=== PATIENT | male | born 1985 | race Caucasian/White ===

== ENCOUNTER 2016-09-12 10:43 | Emergency (ER) | payer MEDICARE ==
[~2016-09-12] VITALS: Ht 182.9 cm; Wt 122.5 kg
[~2016-09-12 10:43] MED LIST: Allopurinol; Hydrocodone; Metoprolol Tartrate; OXYC-12 PO
--- NOTE | 2016-09-12 10:52 | ED General ---
General Stated Complaint: SYNCOPE Source of Information: Patient, EMS Exam Limitations: No Limitations History of Present Illness Initial Comments To ER per EMS from [facility] with reports of seizure-like activity. Patient had about 30 minutes left of his dialysis session today when this happened. He is supposed to get hemodialysis Wednesday and Wednesday. However, he states that he started "feeling sick" when he had dialysis so he quit going to dialysis a few months ago. He decided today that he should have dialysis again. He states that he does have a seizure history but does not take any medication for this. At this time his only complaint is of dizziness and "I feel weird" Timing/Duration: 1/2 Hour Severity: Moderate Allergies and Home Medications Allergies Coded Allergies: No Known Drug Allergies (Unverified , 12/03/14) Home Medications Oxycodone Hcl/Acetaminophen 1 Each Tablet, 1 EACH PO Q4-6H PRN PRN for PAIN, # 20 Ref 0 Prescribed by: JAYME GAGNON on 12/03/14 2025 [Allopurinol] , (Reported) [Hydrocodone] , (Reported) [Metoprolol Tartrate] , (Reported) Constitutional: see HPI EENTM: see HPI Respiratory: no symptoms reported Cardiovascular: no symptoms reported Genitourinary: no symptoms reported Musculoskeletal: no symptoms reported Skin: no symptoms reported Psychiatric/Neurological: No Symptoms Reported Hematologic/Lymphatic: No Symptoms Reported Immunological/Allergic: no symptoms reported Past Xlsnfvl-Yoknna-Umljlh Hx Seasonal Allergies Seasonal Allergies: No Surgeries HX Surgeries: Yes (Jaw reconstruction, urological procedure as a child, dialysis shunt) Respiratory Hx Respiratory Disorders: No Cardiovascular Hx Cardiac Disorders: Yes Cardiac Disorders: Hypertension Neurological Hx Neurological Disorders: No Reproductive System Hx Reproductive Disorders: No Genitourinary Hx Genitourinary Disorders: Yes (ESRD) Genitourinary Disorders: Renal Failure Gastrointestinal Hx Gastrointestinal Disorders: No Musculoskeletal Hx Musculoskeletal Disorders: Yes (Radiculopathy, MRI recently at [place]) Musculoskeletal Disorders: Chronic Back Pain Endocrine Hx Endocrine Disorders: No HEENT HX ENT Disorders: No Cancer Hx Cancer: No Psychosocial Hx Psychiatric Problems: No Integumentary HX Skin/Integumentary Disorder: No Blood Transfusions Hx Blood Disorders: No Physical Exam Vital Signs Vital Sign - Last 12Hours 09/12/16 11:00 Temp 98.4 Pulse 104 Resp 20 B/P (MAP) 140/94 Pulse Ox 94 O2 Delivery Room Air Capillary Refill : General Appearance: No Apparent Distress, WD/WN, Obese Eyes: Bilateral Eye EOMI, Bilateral Eye Normal Inspection, Bilateral Eye PERRL HEENT: PERRL/EOMI, TMs Normal Neck: Full Range of Motion, Normal Inspection Respiratory: Normal Breath Sounds, No Accessory Muscle Use, No Respiratory Distress Cardiovascular: Regular Rate, Rhythm, Normal Peripheral Pulses Gastrointestinal: Normal Bowel Sounds, Non Tender, Soft Extremity: Normal Capillary Refill, Normal Inspection, Other (dialysis fistula with no active bleeding to the left upper arm) Neurologic/Psychiatric: Alert, Oriented x3 Skin: Normal Color, Warm/Dry Progress/Results/Core Measures Results/Orders Lab Results Laboratory Tests Test 09/12/16 11:00 09/12/16 11:05 Range/Units Prothrombin Time 15.6 H 12.2-14.7 SEC INR Comment 1.3 0.8-1.4 White Blood Count 6.5 4.3-11.0 10^3/uL Red Blood Count 3.98 L 4.35-5.85 10^6/uL Hemoglobin 12.0 L 13.3-17.7 G/DL Hematocrit 35 L 40-54 % Mean Corpuscular Volume 87 80-99 FL Mean Corpuscular Hemoglobin 30 25-34 PG Mean Corpuscular Hemoglobin Concent 35 32-36 G/DL Red Cell Distribution Width 13.8 10.0-14.5 % Platelet Count 187 130-400 10^3/uL Mean Platelet Volume 10.5 H 7.4-10.4 FL Neutrophils (%) (Auto) 71 42-75 % Lymphocytes (%) (Auto) 18 12-44 % Monocytes (%) (Auto) 8 0-12 % Eosinophils (%) (Auto) 3 0-10 % Basophils (%) (Auto) 1 0-10 % Neutrophils # (Auto) 4.6 1.8-7.8 X 10^3 Lymphocytes # (Auto) 1.2 1.0-4.0 X 10^3 Monocytes # (Auto) 0.5 0.0-1.0 X 10^3 Eosinophils # (Auto) 0.2 0.0-0.3 10^3/uL Basophils # (Auto) 0.0 0.0-0.1 10^3/uL Sodium Level 138 135-145 MMOL/L Potassium Level 3.1 L 3.6-5.0 MMOL/L Chloride Level 96 L 98-107 MMOL/L Carbon Dioxide Level 26 21-32 MMOL/L Anion Gap 16 H 5-14 MMOL/L Blood Urea Nitrogen 27 H 7-18 MG/DL Creatinine 4.43 H 0.60-1.30 MG/DL Estimat Glomerular Filtration Rate 16 BUN/Creatinine Ratio 6 Glucose Level 96 70-105 MG/DL Calcium Level 7.8 L 8.5-10.1 MG/DL Total Bilirubin 0.4 0.1-1.0 MG/DL Aspartate Amino Transf (AST/SGOT) 24 5-34 U/L Alanine Aminotransferase (ALT/SGPT) 22 0-55 U/L Alkaline Phosphatase 80 40-136 U/L Total Protein 6.8 6.4-8.2 G/DL Albumin 4.1 3.2-4.5 G/DL My Orders Orders - JAYME GAGNON APRN Cbc With Automated Diff (09/12/16 10:49) Comprehensive Metabolic Panel (09/12/16 10:49) Ekg Tracing (09/12/16 10:49) Chest 1 View, Ap/Pa Only (09/12/16 10:49) Ua Culture If Indicated (09/12/16 10:49) Drug Screen Stat (Urine) (09/12/16 10:49) Protime With Inr (09/12/16 11:25) Vital Signs/I&O Vital Sign - Last 12Hours 09/12/16 11:00 Temp 98.4 Pulse 104 Resp 20 B/P (MAP) 140/94 Pulse Ox 94 O2 Delivery Room Air Departure Communication Progress Notes 1124-labs sent with the patient from [facility] show June 15, 2016 his creatinine was 6.9. This is the most recent creatinine on file. His BUN at that time was 66. 1149- patient is asymptomatic at this time. States that he will need a cab to get back to his truck which is at the [facility] dialysis center. Vitals stable. Patient states "I told them I was gonna go down, I think they took too much fluid off" Impression Impression: Primary Impression: Chronic renal failure Additional Impressions: Syncope due to orthostatic hypotension noncompliance with dialysis regimen Disposition: 01 HOME, SELF-CARE Condition: Stable Departure-Patient Inst. Decision time for Depature: 11:44 Referrals: NO,LOCAL PHYSICIAN (PCP/Family) Primary Care Physician Patient Instructions: Orthostatic Hypotension (DC) Add. Discharge Instructions: 1. Follow-up with your regular doctor 2. Do not skip your next dialysis appointment on Wednesday 3. Return to ER for any concerns JAYME GAGNON APRN Sep 12, 2016 10:52
[2016-09-12 11:12] LABS: BASOPHILS % (AUTO) 1 % (0-10); EOSINOPHILS # (AUTO) 0.2 10^3/uL (0.0-0.3); EOSINOPHILS % (AUTO) 3 % (0-10); LYMPHOCYTES # (AUTO) 1.2 X 10^3 (1.0-4.0); LYMPHOCYTES % (AUTO) 18 % (12-44); MEAN CORPUSCULAR HEMOGLOBIN 30 PG (25-34); MEAN CORPUSCULAR HGB CONC 35 G/DL (32-36); MEAN CORPUSCULAR VOLUME 87 FL (80-99); MEAN PLATELET VOLUME 10.5 FL (7.4-10.4); MONOCYTES # (AUTO) 0.5 X 10^3 (0.0-1.0); MONOCYTES % (AUTO) 8 % (0-12); NEUTROPHILS # (AUTO) 4.6 X 10^3 (1.8-7.8); NEUTROPHILS % (AUTO) 71 % (42-75); PLATELET COUNT 187 10^3/uL (130-400); RED BLOOD COUNT 3.98 10^6/uL (4.35-5.85); RED CELL DISTRIBUTION WIDTH 13.8 % (10.0-14.5); WHITE BLOOD COUNT 6.5 10^3/uL (4.3-11.0)
[2016-09-12 11:34] LABS: ALBUMIN 4.1 G/DL (3.2-4.5); BILIRUBIN,TOTAL 0.4 MG/DL (0.1-1.0); CALCIUM 7.8 MG/DL (8.5-10.1); CREATININE SERUM 4.43 MG/DL (0.60-1.30); POTASSIUM 3.1 MMOL/L (3.6-5.0); TOTAL PROTEIN 6.8 G/DL (6.4-8.2)
[2016-09-12 11:34] LABS: INR 1.3 (0.8-1.4); PROTHROMBIN TIME PATIENT 15.6 SEC (12.2-14.7)
--- NOTE | 2016-09-12 11:42 | Diagnostic Imaging Report ---
EXAM: CHEST 1 VIEW, AP/PA ONLY INDICATION: Syncope. COMPARISON: None. FINDINGS: Normal heart size and pulmonary vascularity. Small right pleural effusion. No focal consolidation. No pneumothorax. No acute osseous findings. IMPRESSION: Small right pleural effusion. Chest is otherwise negative. Dictated by: Dictated on workstation # [id number]
[2016-09-12 11:49] VITALS: BP 143/90
== END 2016-09-12 11:49 | disposition home or self-care (01) ==
LOC: EDUNIT# 10:43 → ER 10:44
DX: I95.1 Orthostatic hypotension (principal); R55 Syncope and collapse; I12.0 Hypertensive chronic kidney disease with stage 5 chronic kidney disease or end stage renal disease; N18.6 End stage renal disease; G40.909 Epilepsy, unspecified, not intractable, without status epilepticus; J90 Pleural effusion, not elsewhere classified; Z91.15 Patient's noncompliance with renal dialysis
CPT/HCPCS: 36415; 71010; 80053; 85025; 85610; 93005

== ENCOUNTER 2018-09-15 22:38 | Emergency (ER) | payer MEDICARE ==
[~2018-09-15] VITALS: Ht 185.4 cm; Wt 117.3 kg
[2018-09-15] MEDS ORDERED: fentaNYL INJECTION 100 MCG/2 ML AMP IVP ONE (23:00)
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
[2018-09-15 23:07] LABS: HEMATOCRIT 35 % (40-54); MEAN CORPUSCULAR HEMOGLOBIN 29 PG (25-34); MEAN CORPUSCULAR HGB CONC 31 G/DL (32-36); MEAN CORPUSCULAR VOLUME 92 FL (80-99); WHITE BLOOD COUNT 10.5 10^3/uL (4.3-11.0)
[2018-09-15 23:08] LABS: BASOPHILS # (AUTO) 0.1 10^3/uL (0.0-0.1); BASOPHILS % (AUTO) 1 % (0-10); EOSINOPHILS # (AUTO) 0.5 10^3/uL (0.0-0.3); EOSINOPHILS % (AUTO) 5 % (0-10); LYMPHOCYTES # (AUTO) 2.4 X 10^3 (1.0-4.0); LYMPHOCYTES % (AUTO) 23 % (12-44); MEAN PLATELET VOLUME 10.2 FL (7.4-10.4); MONOCYTES # (AUTO) 0.7 X 10^3 (0.0-1.0); MONOCYTES % (AUTO) 6 % (0-12); NEUTROPHILS # (AUTO) 6.7 X 10^3 (1.8-7.8); NEUTROPHILS % (AUTO) 64 % (42-75); PLATELET COUNT 248 10^3/uL (130-400); RED CELL DISTRIBUTION WIDTH 14.2 % (10.0-14.5)
[2018-09-15 23:15] LABS: PROTHROMBIN TIME PATIENT 13.8 SEC (12.2-14.7)
[2018-09-15 23:26] LABS: CHLORIDE 98 MMOL/L (98-107); SODIUM 142 MMOL/L (135-145)
[2018-09-15 23:27] LABS: ALANINE AMINOTRANSFERASE 34 U/L (0-55); ALBUMIN 4.7 GM/DL (3.2-4.5); ALKALINE PHOSPHATASE 110 U/L (40-136); BILIRUBIN,TOTAL 0.3 MG/DL (0.1-1.0); BUN/CREATININE RATIO 7; CALCIUM 6.8 MG/DL (8.5-10.1); CREATININE SERUM 12.58 MG/DL (0.60-1.30); GFR ESTIMATED 5; GLUCOSE 125 MG/DL (70-105); TOTAL PROTEIN 8.2 GM/DL (6.4-8.2)
[2018-09-15 23:52] LABS: CARBON DIOXIDE 11 MMOL/L (21-32)
--- NOTE | 2018-09-16 00:22 | NUR ---
FAMILY REPORTED THE PATIENT IS COUGHING UP BLOOD WHEN HE COUGHS. PT. DOES HAVE BLOOD IN THE NARES.
[2018-09-16] MEDS ORDERED: fentaNYL INJECTION 100 MCG/2 ML AMP IVP ONE (01:30)
[2018-09-16] MEDS ORDERED: ACETAMINOPHEN 500 MG TAB (TYLENOL) PO ONE (01:30)
[2018-09-16] MEDS ORDERED: ACETAMINOPHEN 500 MG TAB (TYLENOL) PO STA (01:48)
[2018-09-16] MEDS ORDERED: fentaNYL INJECTION 100 MCG/2 ML AMP IVP STA (01:48)
[2018-09-16 02:01] VITALS: BP 118/72
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
== END 2018-09-16 02:03 | disposition left against medical advice (07) ==
LOC: EDUNIT# 22:38 → EDBD 22:38 → ER FS 22:39
DX: S39.012A Strain of muscle, fascia and tendon of lower back, initial encounter (principal); S20.219A Contusion of unspecified front wall of thorax, initial encounter; G40.909 Epilepsy, unspecified, not intractable, without status epilepticus; R04.0 Epistaxis; I12.0 Hypertensive chronic kidney disease with stage 5 chronic kidney disease or end stage renal disease; N18.6 End stage renal disease; Z99.2 Dependence on renal dialysis; V89.2XXA Person injured in unspecified motor-vehicle accident, traffic, initial encounter
CPT/HCPCS: 36415; 70450; 71250; 72125; 74176; 80053; 80320; 82962; 83735; 85025; 85610; 85730; 93041

== ENCOUNTER 2019-01-25 20:53 | Emergency (ER) | payer MEDICARE ==
[~2019-01-25] VITALS: Ht 188 cm; Wt 117.7 kg
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
[2019-01-25 21:17] LABS: HEMATOCRIT 32 % (40-54); HEMOGLOBIN 10.4 G/DL (13.3-17.7); MEAN CORPUSCULAR HEMOGLOBIN 29 PG (25-34); MEAN CORPUSCULAR HGB CONC 32 G/DL (32-36); MEAN CORPUSCULAR VOLUME 89 FL (80-99); MEAN PLATELET VOLUME 10.7 FL (7.4-10.4); PLATELET COUNT 184 10^3/uL (130-400); RED CELL DISTRIBUTION WIDTH 14.7 % (10.0-14.5); WHITE BLOOD COUNT 12.4 10^3/uL (4.3-11.0)
[2019-01-25 21:18] LABS: BASOPHILS % (AUTO) 0 % (0-10); EOSINOPHILS # (AUTO) 0.3 10^3/uL (0.0-0.3); EOSINOPHILS % (AUTO) 2 % (0-10); LYMPHOCYTES # (AUTO) 0.8 X 10^3 (1.0-4.0); LYMPHOCYTES % (AUTO) 6 % (12-44); MONOCYTES # (AUTO) 0.7 X 10^3 (0.0-1.0); MONOCYTES % (AUTO) 6 % (0-12); NEUTROPHILS # (AUTO) 10.6 X 10^3 (1.8-7.8); NEUTROPHILS % (AUTO) 86 % (42-75)
--- NOTE | 2019-01-25 21:35 | Diagnostic Imaging Report ---
INDICATION: Chest pain. COMPARISON: 09/12/2016. FINDINGS: No pleural effusion or pneumothorax. Patchy basilar subsegmental atelectasis. There is a subacute/healing fracture about the lateral aspect of the left ninth rib. Heart is normal in size. IMPRESSION: 1. Subacute/healing fracture of the lateral left ninth rib. 2. Patchy basilar subsegmental atelectasis. 3. No pneumothorax. Dictated by: Dictated on workstation # [id number]
[2019-01-25 21:39] LABS: POTASSIUM 3.5 MMOL/L (3.6-5.0)
[2019-01-25 21:40] LABS: BILIRUBIN,TOTAL 0.3 MG/DL (0.1-1.0); CALCIUM 6.5 MG/DL (8.5-10.1); CREATININE SERUM 17.44 MG/DL (0.60-1.30); MAGNESIUM 2.3 MG/DL (1.6-2.4)
[2019-01-25 21:41] LABS: ALBUMIN 4.3 GM/DL (3.2-4.5); TOTAL PROTEIN 7.5 GM/DL (6.4-8.2)
[2019-01-25 21:51] LABS: ATYPICAL LYMPHOCYTES 2 %; BAND NEUTROPHILS 5 %; BASOPHILS % (MANUAL) 0 %; EOSINOPHILS % (MANUAL) 1 %; LYMPHOCYTES % (MANUAL) 10 %; MONOCYTES % (MANUAL) 1 %; NEUTROPHILS % (MANUAL) 81 %
[2019-01-25] MEDS: methylPREDNISolone 125 MG (Solu-MEDROL) VIAL IVP STA (22:12)
[2019-01-25] MEDS: ORPHENADRINE 60 MG/2 ML (NORFLEX) AMP IVP STA (22:12)
[2019-01-25 22:16] VITALS: BP 162/88
== END 2019-01-25 22:16 | disposition home or self-care (01) ==
LOC: EDUNIT# 20:53 → ER FS 20:54
DX: R07.81 Pleurodynia (principal); I12.0 Hypertensive chronic kidney disease with stage 5 chronic kidney disease or end stage renal disease; N18.6 End stage renal disease; G40.909 Epilepsy, unspecified, not intractable, without status epilepticus; Z99.2 Dependence on renal dialysis
CPT/HCPCS: 36415; 71046; 80053; 83735; 84484; 85007; 85027; 93005; 93041

== ENCOUNTER 2019-04-09 10:59 | Emergency (ER) | payer MEDICARE ==
[~2019-04-09] VITALS: Ht 185.4 cm; Wt 113.8 kg
--- NOTE | 2019-04-09 11:01 | ED Dyspnea ---
General Stated Complaint: SOB History of Present Illness Date Seen by Provider: Apr 09, 2019 Time Seen by Provider: 12:26 Initial Comments The patient is a 33-year-old white male with known hypertension going back to high school. He is also more recently been known to have renal failure. One of our nurses previously worked in an outpatient dialysis facility and he was receiving dialysis in 2014. He has decided that that was not helping him any and had discontinued both dialysis and blood pressure medicines. Today he pres ents with complaints of weakness and shortness of breath. It is noted that his parents and several other family members had of kidney failure. 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 Timing/Duration: Increasing Allergies and Home Medications Allergies Coded Allergies: No Known Drug Allergies (Unverified , 12/03/14) Home Medications Oxycodone Hcl/Acetaminophen 1 Each Tablet, 1 EACH PO Q4-6H PRN PRN for PAIN Prescribed by: JAYME GAGNON on 12/03/14 1257 Patient Home Medication List Home Medication List Reviewed: Yes Review of Systems Review of Systems Constitutional: see HPI EENTM: no symptoms reported Respiratory: short of breath Cardiovascular: no symptoms reported Gastrointestinal: no symptoms reported Genitourinary: no symptoms reported Musculoskeletal: muscle weakness Skin: no symptoms reported Psychiatric/Neurological: No Symptoms Reported Endocrine: No Symptoms Reported Hematologic/Lymphatic: No Symptoms Reported Past Ayqkwth-Wvqxpx-Gfbzhg Hx Patient Social History Recent Hopitalizations: No Seasonal Allergies Seasonal Allergies: No Past Medical History Surgeries: Yes (Jaw reconstruction, urological procedure as a child, dialysis shunt) Dialysis Respiratory: No Cardiac: Yes Hypertension Neurological: Yes Seizure Disorder Reproductive Disorders: No Genitourinary: Yes Renal Failure, Dialysis Gastrointestinal: No Musculoskeletal: Yes Chronic Back Pain Endocrine: No HEENT: No Cancer: No Psychosocial: No Integumentary: No Blood Disorders: No Physical Exam Vital Signs Vital Signs - First Documented 04/09/19 11:04 Temp 36.3 Pulse 104 Resp 20 B/P (MAP) 116/78 (91) Pulse Ox 99 O2 Delivery Room Air Capillary Refill : Height, Weight, BMI Height: 6'2.00" Weight: 259lbs. 9.0oz. 117.033564oq; BMI Method:Actual General Appearance: Mild Distress HEENT: Normal ENT Inspection Neck: Full Range of Motion, Normal Inspection Respiratory: Chest Non Tender, Lungs Clear, Normal Breath Sounds, No Accessory Muscle Use, No Respiratory Distress Cardiovascular: Regular Rate, Rhythm, No Edema, No Gallop, No JVD, No Murmur, Normal Peripheral Pulses Gastrointestinal: Normal Bowel Sounds, Other (abdomen is protuberant but there is no hong fluid wave) Extremity: Normal Capillary Refill, Normal Inspection Neurologic/Psychiatric: Alert, Oriented x3, No Motor/Sensory Deficits Skin: Normal Color, Warm/Dry Lymphatic: No Adenopathy Progress/Results/Core Measures Results/Orders Lab Results Laboratory Tests Test 04/09/19 11:25 04/09/19 11:30 04/09/19 12:11 Range/Units Pro-B-Type Natriuretic Peptide 8994.0 H <75.0 PG/ML White Blood Count 8.0 4.3-11.0 10^3/uL Red Blood Count 3.57 L 4.35-5.85 10^6/uL Hemoglobin 10.0 L 13.3-17.7 G/DL Hematocrit 31 L 40-54 % Mean Corpuscular Volume 87 80-99 FL Mean Corpuscular Hemoglobin 28 25-34 PG Mean Corpuscular Hemoglobin Concent 32 32-36 G/DL Red Cell Distribution Width 15.1 H 10.0-14.5 % Platelet Count 221 130-400 10^3/uL Mean Platelet Volume 10.7 H 7.4-10.4 FL Neutrophils (%) (Auto) 74 42-75 % Lymphocytes (%) (Auto) 12 12-44 % Monocytes (%) (Auto) 10 0-12 % Eosinophils (%) (Auto) 3 0-10 % Basophils (%) (Auto) 0 0-10 % Neutrophils # (Auto) 6.0 1.8-7.8 X 10^3 Lymphocytes # (Auto) 1.0 1.0-4.0 X 10^3 Monocytes # (Auto) 0.8 0.0-1.0 X 10^3 Eosinophils # (Auto) 0.3 0.0-0.3 10^3/uL Basophils # (Auto) 0.0 0.0-0.1 10^3/uL Sodium Level 134 L 135-145 MMOL/L Potassium Level 4.3 3.6-5.0 MMOL/L Chloride Level 88 L 98-107 MMOL/L Carbon Dioxide Level 13 L 21-32 MMOL/L Anion Gap 33 H 5-14 MMOL/L Blood Urea Nitrogen 163 *H 7-18 MG/DL Creatinine 19.60 H 0.60-1.30 MG/DL Estimat Glomerular Filtration Rate 3 BUN/Creatinine Ratio 8 Glucose Level 150 H 70-105 MG/DL Calcium Level 6.0 *L 8.5-10.1 MG/DL Corrected Calcium 5.8 L 8.5-10.1 MG/DL Total Bilirubin 0.3 0.1-1.0 MG/DL Aspartate Amino Transf (AST/SGOT) 16 5-34 U/L Alanine Aminotransferase (ALT/SGPT) 20 0-55 U/L Alkaline Phosphatase 142 H 40-136 U/L Total Protein 7.6 6.4-8.2 GM/DL Albumin 4.2 3.2-4.5 GM/DL Urine Color YELLOW Urine Clarity CLOUDY Urine pH 6.0 5-9 Urine Specific [place] 1.020 1.016-1.022 Urine Protein 2+ H NEGATIVE Urine Glucose (UA) TRACE H NEGATIVE Urine Ketones NEGATIVE NEGATIVE Urine Nitrite NEGATIVE NEGATIVE Urine Bilirubin NEGATIVE NEGATIVE Urine Urobilinogen 0.2 < = 1.0 MG/DL Urine Leukocyte Esterase 2+ H NEGATIVE Urine RBC (Auto) 2+ H NEGATIVE Urine RBC 2-5 H /HPF Urine WBC >100 H /HPF Urine Squamous Epithelial Cells 0-2 /HPF Urine Crystals NONE /LPF Urine Bacteria MODERATE H /HPF Urine Casts NONE /LPF Urine Mucus NEGATIVE /LPF Urine Culture Indicated YES My Orders Orders - ZAID WEST MD Cbc With Automated Diff (04/09/19 11:06) Comprehensive Metabolic Panel (04/09/19 11:06) Ua Culture If Indicated (04/09/19 11:06) Chest 1 View Ap/Pa Only (04/09/19 11:07) Probnp Fs (04/09/19 11:47) Urine Culture (04/09/19 12:11) Vital Signs/I&O 04/09/19 11:04 Temp 36.3 Pulse 104 Resp 20 B/P (MAP) 116/78 (91) Pulse Ox 99 O2 Delivery Room Air Departure Communication (Admissions) 1220: Laboratory has been completed. It is noted that on the BUN was 106, creatinine 17.44, calcium 6.3 corrected. These findings and the consequences were discussed with the patient and his family. 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 It was expressed to him that if he wished to continue to be a part of her life must deal with his kidney disease. Accordingly we will discuss this with Mel Rolon for the purposes of transfer to an inpatient dialysis facility. He has a functioning shunt in the left upper biceps area Spoke with Dr. Muniz, geology technician at [facility]. He will accept the patient in transfer. The plan will be to send him by private vehicle as he walked in and this is a long-term and ongoing problem. It will greatly reduce the transfer time. Materials are package and sent with the patient. Time 13 00 Impression Primary Impression: advanced renal failure Additional Impression: chronic hypertension Disposition: 02 XFER SHT-TRM HOSP Condition: Unchanged Transfer Transfer Reason: Exceeds level of care Time Spoke to Accepting Phy: 12:55 Transfer Progress Notes Patient is transferred to [facility] as he requires nephrology care and inpatient dialysis. Transfer Facility: [facility] Method of Transfer: Private Vehicle Departure-Patient Inst. Decision time for Depature: 12:57 Referrals: MARITA CLEMENT MD (PCP/Family) Primary Care Physician ZAID WEST MD Apr 09, 2019 11:01 POS
--- NOTE | 2019-04-09 11:30 | Diagnostic Imaging Report ---
INDICATION: Shortness of breath, left-sided pain. TECHNIQUE: Single view chest 10:55 a.m. CORRELATION STUDY: 01/25/2019. FINDINGS: Limited depth of inspiration. However, there appears to be cardiac enlargement. Mild pulmonary vascular distribution. No overt failure. Probable small pleural effusion. There does appear to be some atelectasis or infiltrate at the right lung base. IMPRESSION: 1. Suggest small area of infiltrate or atelectasis at the right lung base along with trace pleural effusions. 2. Cardiac enlargement without failure. Dictated by: Dictated on workstation # [id number]
[2019-04-09 11:49] LABS: BASOPHILS % (AUTO) 0 % (0-10); EOSINOPHILS # (AUTO) 0.3 10^3/uL (0.0-0.3); EOSINOPHILS % (AUTO) 3 % (0-10); HEMATOCRIT 31 % (40-54); LYMPHOCYTES % (AUTO) 12 % (12-44); MEAN CORPUSCULAR HEMOGLOBIN 28 PG (25-34); MEAN CORPUSCULAR HGB CONC 32 G/DL (32-36); MEAN CORPUSCULAR VOLUME 87 FL (80-99); MEAN PLATELET VOLUME 10.7 FL (7.4-10.4); MONOCYTES # (AUTO) 0.8 X 10^3 (0.0-1.0); MONOCYTES % (AUTO) 10 % (0-12); NEUTROPHILS % (AUTO) 74 % (42-75); PLATELET COUNT 221 10^3/uL (130-400); RED CELL DISTRIBUTION WIDTH 15.1 % (10.0-14.5)
[2019-04-09 12:07] LABS: POTASSIUM 4.3 MMOL/L (3.6-5.0)
[2019-04-09 12:08] LABS: CREATININE SERUM 19.6 MG/DL (0.60-1.30)
[2019-04-09 12:09] LABS: ALBUMIN 4.2 GM/DL (3.2-4.5); BILIRUBIN,TOTAL 0.3 MG/DL (0.1-1.0); TOTAL PROTEIN 7.6 GM/DL (6.4-8.2)
[2019-04-09 12:33] LABS: CLARITY,URINE CLOUDY; COLOR,URINE YELLOW; GLUCOSE, URINE (UA) TRACE (NEGATIVE); PROTEIN,URINE 2+ (NEGATIVE)
[2019-04-09 12:34] LABS: BACTERIA,URINE MODERATE /HPF; BILIRUBIN,URINE NEGATIVE (NEGATIVE); KETONES,URINE NEGATIVE (NEGATIVE); LEUKOCYTE ESTERASE ,URINE 2+ (NEGATIVE); NITRITE,URINE NEGATIVE (NEGATIVE); SQUAMOUS EPITHELIAL CELL,UR 0-2 /HPF; WBC,URINE >100 /HPF
[2019-04-09 13:47] VITALS: BP 144/61
== END 2019-04-09 13:43 | disposition short-term general hospital (02) ==
LOC: EDUNIT# 10:59 → ER FS 11:00
DX: N19 Unspecified kidney failure (principal); I10 Essential (primary) hypertension; G40.909 Epilepsy, unspecified, not intractable, without status epilepticus; Z99.2 Dependence on renal dialysis
CPT/HCPCS: 36415; 71045; 80053; 81000; 83880; 85025; 87077; 87088